=== PATIENT | male | born 1950 | race Caucasian/White ===

== ENCOUNTER → 2021-01-20 02:49 | Outpatient (CLI) | payer MEDICARE, SELFPAY ==
[2021-01-20 21:05] LABS: SARS-CoV-2 RNA PCR Negative
== END ==
PROVIDERS: PCP Internal Medicine; Visit Provider Internal Medicine Gastroenterology
DX: Z01.812 Encounter for preprocedural laboratory examination (principal); Z20.822 Contact with and (suspected) exposure to COVID-19
CPT/HCPCS: C9803; U0003; U0005

== ENCOUNTER 2021-01-23 00:43 | Day surgery (SDC) | payer MEDICARE, SELFPAY ==
[2021-01-07 14:10] VITALS: BMI 24.1
[2021-01-23 06:19] VITALS: BP 137/62; PULSE 76; RESP 18; TEMP 36.1; O2SAT 100; BMI 23.0
[2021-01-23] MEDS: LACTATED RINGERS 1,000 ML 150 ML IV CONT (06:28)
--- NOTE | 2021-01-23 07:25 | WPDANESEPPF ---
Anes - Initial Pre Proc Eval Procedure: Operation Date: 01/23/21 07:30 Proposed Procedures p Screening Colonoscopy - Blu Costa DO Date/Time: 01/23/21 07:25 Surgeon: Blu Costa DO Pre Op Diagnosis: Neoplasm Screening Patient Data Age: 70 Gender: M Height: 5 ft 10 in Weight: 72.8 kg Last Vital Signs Temp 97 F L 01/23/21 06:19 Pulse 76 01/23/21 06:19 Resp 18 01/23/21 06:19 BP 137/62 01/23/21 06:19 Pulse Ox 100 01/23/21 06:19 Allergies Allergy/AdvReac Type Severity Reaction Status Date / Time aspirin Allergy Severe HIVES,SWELLING Verified 01/23/21 06:18 OF AIRWAY ibuprofen Allergy Intermediate STOMACH Verified 01/23/21 06:18 PROBLEMS Home Medications Medication Instructions Recorded Confirmed Type Humira See Rx Instructions .ROUTE .COMPLEX 01/07/21 01/23/21 History acetaminophen-codeine 1 tablet PO DAILY PRN 01/07/21 01/23/21 History gabapentin 300 mg PO DAILY 01/07/21 01/23/21 History Patient hx anesthesia problems: none Family hx anesthesia problems: none PMFSH Past Medical History Medical History (Updated 01/23/21 @ 07:25 by Torsten Delcid MD) Hyperlipidemia Hypertension Social History Social History Smoking packs per day: 0.5 Smoking cigarettes per day: 10.0 Smoking status: Current every day smoker Tobacco type: cigarettes Alcohol use details: socially Substance use: never Substance use type: does not use Living arrangements: with family Gender identity (if verbalized by the patient): Male Spiritual care concerns: No Anes - Eval Final PreProcedure Day of Procedure 01/23/21 07:25 Patient weight: normal Heart: regular rate and rhythm Lungs: clear to auscultation Airway: Mallampati scale class II Neurological: alert and oriented Last oral intake: >/= 8 hours ASA classification: III Emergent: no Anesthetic plan: proceed Anesthesia type and monitoring: general GIVS and standard monitoring Informed Consent: The patient's anesthetic plan and its attendant risks and benefits were discussed with the patient/family/POA. Questions were solicited and answers provided to the satisfaction of the patient/family/POA.
--- NOTE | 2021-01-23 07:28 | WPDGICN ---
GI Consult Note Consult date/time: 01/23/21 07:28 HPI: Reason for visit is colonoscopy. This very pleasant gentleman is here for at the request the primary physician. Impression: Your very pleasant gentleman is here for screening colonoscopy. He does have a history of rectal pain and bleeding. We evaluate for underlying inflammatory or neoplastic disease. Possible perianal bleeding /anal fissures consideration. Prostate cancer status post Radiation brachytherapy. HLD. HTN. Tobacco abuse. Recommendation: Colonoscopy. History: This very pleasant gentleman is here for colonoscopy. He has a history of rectal bleeding and pain. He has previous brachytherapy for Prostate cancer. Previous colonoscopy was unrewarding. Physical examination: General: very pleasant patient in no acute distress. HEENT: Head was normocephalic sclerae is clear mouth without masses neck was supple. Heart: Rate rhythm regular without S3 or S4. Lungs: CTA. Abdomen: Soft with no guarding or rigidity. Bowel sounds were active. Neurologic: Cranial nerves 2 through 12 intact. No focal defects. No clonus. Musculoskeletal system: Revealed no joint tenderness or swelling no muscle atrophy. Extremities: Reveal no significant edema. Skin: Warm and dry with normal turgor. Mental status: intact. Patient is alert and oriented. Review of Systems Review of Systems: All systems reviewed & are unremarkable except as noted in HPI and below PMFSH Past Medical History Medical History (Updated 01/23/21 @ 07:25 by Torsten Delcid MD) Hyperlipidemia Hypertension Social History Social History Smoking packs per day: 0.5 Smoking cigarettes per day: 10.0 Smoking status: Current every day smoker Tobacco type: cigarettes Alcohol use details: socially Substance use: never Substance use type: does not use Living arrangements: with family Gender identity (if verbalized by the patient): Male Spiritual care concerns: No Meds Home Medications and Allergies Home Medications Medication Instructions Recorded Confirmed Type Humira See Rx Instructions .ROUTE .COMPLEX 01/07/21 01/23/21 History acetaminophen-codeine 1 tablet PO DAILY PRN 01/07/21 01/23/21 History gabapentin 300 mg PO DAILY 01/07/21 01/23/21 History Allergies Allergy/AdvReac Type Severity Reaction Status Date / Time aspirin Allergy Severe HIVES,SWELLING Verified 01/23/21 06:18 OF AIRWAY ibuprofen Allergy Intermediate STOMACH Verified 01/23/21 06:18 PROBLEMS Vital Signs Vital Signs - 24 hr 01/23/21 06:19 Temperature 36.1 C L Pulse Rate 76 Respiratory Rate 18 Blood Pressure 137/62 Pulse Oximetry 100
[2021-01-23 07:59] VITALS: BP 130/55; PULSE 59; RESP 13; O2SAT 99
[2021-01-23 08:09] VITALS: BP 131/61; PULSE 57; RESP 13; O2SAT 100
[2021-01-23 08:19] VITALS: BP 147/58; PULSE 58; RESP 15; O2SAT 100
== END 2021-01-23 08:30 | disposition home or self-care (01) ==
PROVIDERS: PCP Internal Medicine; Visit Provider Internal Medicine Gastroenterology
PROC: 0DJD8ZZ Inspection of Lower Intestinal Tract, Via Natural or Artificial Opening Endoscopic (ICD-10-PCS; CPT 45378; principal; 2021-01-23 07:30)
DX: Z12.11 Encounter for screening for malignant neoplasm of colon (principal); D12.0 Benign neoplasm of cecum; K62.7 Radiation proctitis; Y84.2 Radiological procedure and radiotherapy as the cause of abnormal reaction of the patient, or of later complication, without mention of misadventure at the time of the procedure; K64.8 Other hemorrhoids; Z85.46 Personal history of malignant neoplasm of prostate; I10 Essential (primary) hypertension; E78.5 Hyperlipidemia, unspecified; F17.210 Nicotine dependence, cigarettes, uncomplicated
CPT/HCPCS: 45380; 45388; 88305; J2704; J7120